=== PATIENT | female | born 1930 | race Caucasian/White ===

== ENCOUNTER 2017-06-04 14:20 | Emergency (ER) | payer MEDICARE ==
[~2017-06-04] VITALS: Ht 154.9 cm; Wt 48.4 kg
[~2017-06-04 14:20] MED LIST: ALBUTEROL SULF8.5 GM INH; ALBUTEROL2.5 MG/3 M INH; ARICEPT ODT10 MG PO; ARICEPT10 MG PO; ARICEPT5 MG PO; ASPIR-LOW81 MG PO; B-12 DOTS500 MCG PO; B-121000 MC2 PO; BENZONATATE100 MG PO; BREO ELLIPTA 21 EACH IH; BREO ELLIPTA I1 EACH INH; CALCIUM 600 MG1 EACH PO; CALCIUM500 M1 PO; CARTIA XT180 MG PO; CRANBERRY200 MG PO; CRANBERRY500 MG PO; DAILY VITE1 EACH PO; DILTIAZEM 24HR120 MG PO; DILTIAZEM 24HR180 M1 PO; DILTIAZEM 24HR240 MG PO; DRISDOL50000 UNIT PO; ESCITALOPRAM OX10 MG PO; FISH OIL 1,0001 EACH PO; FISH OIL300 MG PO; FUROSEMIDE20 MG PO; INCRUSE ELLI62.5 MCG IH; IPRAT-ALBUT 0.5-3 ML INH; KLOR-CON M2020 MEQ PO; LEXAPRO10 MG PO; LIDODERM700 MG TD; LOVASTATIN20 MG PO; METOPROLOL TART25 MG PO; MIRALAX17 GM PO; NITRO-TIME2.5 MG PO; OMEPRAZOLE20 MG PO; PREDNISONE20 MG PO; SYMBICORT 16010.2 GM INH; TOPROL XL50 MG PO; VITAMIN B-12100 MCG PO; VITAMIN D5000 UNIT PO; XARELTO15 MG PO
[2017-06-04] MEDS ORDERED: ALBUTEROL1.25 MG/3 INH (14:31)
[2017-06-04] MEDS ORDERED: MACROBID 100 M100 MG PO (16:50)
== END 2017-06-04 17:03 | disposition home or self-care (01) ==
LOC: ED 14:20
DX: N39.0 Urinary tract infection, site not specified (principal); J44.9 Chronic obstructive pulmonary disease, unspecified; I25.2 Old myocardial infarction; I10 Essential (primary) hypertension; Z90.49 Acquired absence of other specified parts of digestive tract; Z87.01 Personal history of pneumonia (recurrent); Z88.8 Allergy status to other drugs, medicaments and biological substances; Z79.899 Other long term (current) drug therapy; Z79.82 Long term (current) use of aspirin
CPT/HCPCS: 71010; 80053; 81001; 85025; 96374; 99283; J0696

== ENCOUNTER 2017-06-12 17:25 | Inpatient (IN) | payer MEDICARE ==
[~2017-06-12] VITALS: Ht 154.9 cm; Wt 44.0 kg
[~2017-06-12 17:25] MED LIST changes: +ALBUTEROL1.25 MG/3 INH; +MACROBID 100 M100 MG PO
--- NOTE | 2017-06-12 20:45 | NUR ---
87YR OLD WOMAN ADMITTED FROM ER VIA STRETCHER TO ROOM 111. PT IS ALERT, ORIENTED, ABLE TO MOVE SELF ONTO BED WITH MINIMAL ASSISTANCE. SOB WITH EXHERTION. O2 9L VIA OXYMASK. ORIENTED TO ROOM AND CALL LIGHT. ORDERS NOTED.
--- NOTE | 2017-06-12 22:15 | NUR ---
RT IN TO SEE PT AND NEB TREATMENT GIVEN. PT HAS BEEN UP SEVERAL TIMES TO BSC TO VOID AFTER RECIEVING LASIX IN ER. REMAINS ON O2 @ 9L/OXYMASK, 94%. RESTING BETTER AT THIS TIME. HRIR TELE#1 81.
--- NOTE | 2017-06-13 08:00 | NUR ---
SHIFT ASSESSMENT COMPLETE. VSS. RALES AND CRACKLES AUSCULTATED IN BASES OF LUNGS BILAT. HEART RATE IRREGULAR. PT AAO X 3. RT AT PT BEDSIDE FOR ASSESSMENT.
--- NOTE | 2017-06-13 09:00 | NUR ---
BREAKFAST, REG DIET EATEN. PT SWITCHED FROM NC AT 15 LITERS WHILE EATING TO NONREBREATHER MASK AT 7 LITERS. PT REST COMFORTABLY.
--- NOTE | 2017-06-13 10:00 | NUR ---
PT VISITS WITH FAMILY. DENIES NEEDS.
[2017-06-13] MEDS ORDERED: SEROQUEL25 MG PO (11:18)
--- NOTE | 2017-06-13 12:00 | NUR ---
PHARMICIST IN TO REVIEW MED HISTORY WITH PT.
--- NOTE | 2017-06-13 12:03 | NUR ---
MED REC COMPLETE WITH [facility] REFILL HISTORY AND PATIENT INTERVIEW.
--- NOTE | 2017-06-13 13:00 | NUR ---
RT AT PT BEDSIDE. INITIATES CPAP MACHINE FOR TREATMENT OF CRACKLES IN LUNGS. PT SATS 92-94% ON [address] ANGEL IN TO EXAMINE PT. ORDERS RECEIVED.
--- NOTE | 2017-06-13 13:30 | NUR ---
PT CALL RN TO BEDSIDE. PT AGITATED AND REMOVES CPAP MASK. STATES THAT SHE DOESN'T WANT THE CPAP. PT REASSURED AND CALMS. NC APPLIED AT 14 LITERS. TC TO RT. SOHEILA FROM RT TO PT BEDSIDE FOR CPAP EVALUATION AND REAPPLICATION OF MASK.
--- NOTE | 2017-06-13 14:00 | NUR ---
PT CALL RN TO BEDSIDE. PT IS AGITATED AND ANXIOUS. INDEPENDENTLY REMOVES CPAP. REPORTS THAT THE CPAP "HURTS HER EARS". REFUSES TO CONSIDER REAPPLICATION OF THE CPAP MASK. NC AGAIN APPLIED AT 14 LITERS. TC TO RT. RT SUGGESTS CONSULTING DR. ANGEL.
--- NOTE | 2017-06-13 14:30 | NUR ---
PT CONTIN TO SAT 92-95% ON 14 L BY NC. CONTIN TO REFUSE TO ATTEMPT THE CPAP AGAIN. DR. ANGEL HERE. VERBAL REPORT GIVEN. ORDERS RECEIVED TO DC CPAP ORDERS.
--- NOTE | 2017-06-13 15:30 | NUR ---
RESTS COMFORTABLY WITH REG RESPS OBS. O2 SAT 94% ON 14 L NC. PT LEFT UNDISTURBED.
--- NOTE | 2017-06-13 19:00 | NUR ---
RECEIVED REPORT AROUND 1900. FOUND PT IN BED RESTING. PT DENIES SOB OR PAIN AT THIS TIME.
--- NOTE | 2017-06-13 20:00 | NUR ---
ALL LOBES ARE DIMINISHED BUT CLEAR AT THIS POINT. PT HAS SLIGHT PERIPHERAL ANKLE EDEMA. V/S ARE OVERALL WNL.
--- NOTE | 2017-06-13 23:51 | NUR ---
PT AT THIS TIME IS REFUSING PULSE OXYMETRY MONITORING. PT STATED THAT SHE PRAYED ABOUT THIS DECISION AND THAT IS WHAT SHE WANTS BECAUSE IT BOTHERS HER. MD ANGEL WAS CALLED AND HE WAS OK WITH IT.
--- NOTE | 2017-06-14 00:12 | NUR ---
TELE LEADS ARE OFF AND PT IS REFUSING TO LET ME PUT THEM BACK ON. PT STATED THAT SHE DOES NOT WANT TO BE TOUCHED BY US.
--- NOTE | 2017-06-14 00:32 | NUR ---
PT IS GETTING INCREASINGLY AGITATED. PT AT THIS TIME IS ONLY ORIENTED TO SELF. MD ANGEL IS AWARE. WILL CONTINUE TO MONITOR.
--- NOTE | 2017-06-14 01:12 | NUR ---
WE SPOT CHECKED HER AND THE O2 SATS WERE AT 72% ON 11L NASAL CANNULA. RT WAS CALLED. PT AT THIS TIME IS BACK ON MASK AND 11L OF O2. O2 SATS AT THIS TIME ARE 92%. HR AT THIS TIME IS 88. PT DENIES ANY SOB OR ANY OTHER DISTRESS. PT IS LESS CONFUSED AT THIS TIME WELL. WILL CONTINUE TO MONITOR.
--- NOTE | 2017-06-14 01:42 | NUR ---
PT IS SLEEPING AT THIS TIME. O2 SATS ARE AT 94%.
--- NOTE | 2017-06-14 02:00 | NUR ---
ASSISTED PT TO BATHROOM. PT HAD A BM. PT IS BACK IN BED TRYING TO SLEEP.
--- NOTE | 2017-06-14 03:59 | NUR ---
PT IS SLEEPING AT THIS TIME. O2 SATS ARE >91%.
--- NOTE | 2017-06-14 04:59 | NUR ---
PT WAS DOING WELL AT START OF SHIFT WITH 11L OF O2 NASAL CANNULA. 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 MD ANGEL WAS CALLED AND HE SAID TO SPOT CHECK HER O2 SATS. AT ROUND 0000 PT ALSO REFUSED HER TELE LEADS TO BE PUT BACK ON. PT WAS SPOT CHECKED AROUND 0200 AND O2 SATS WERE 72%. RT WAS CALLED AND DECISION WAS MADE TO PUT HER BACK ON THE OXY MASK FIRST ON 13L O2 AND THEN RATE WAS REDUCED BACK TO 11L OF O2. PT SINCE THE SPOT CHECK HAS BEEN COOPERATIVE AND VERY PLEASANT. PT IS ALSO MORE ORIENTED AND ALERT. PT HAD A BM WELL. PT AT THIS TIME IS SLEEPING AND HER O2 SATS HAVE REMAINED >90% SO FAR. NO NEW ISSUES NOTED SO FAR. PT WILL BE WITHIN THE 1600 ML FLUID RESTRICTION UNTIL BREAKFAST.
--- NOTE | 2017-06-14 07:42 | NUR ---
patient used commode, she brushed her teeth, she washed her face,she is up in her chair waiting for her breakfast.
--- NOTE | 2017-06-14 09:00 | NUR ---
PT APPEARS ANXIOUS THIS AM. FIDGETING IN CHAIR, PICKING AT TELE, GOWN, AND OXY MASK. PT ASKING "WHERE AM I, WHAT ARE WE DOING?" ORIENTED TO SELF AND ASKING "WHERE IS MY FAMILY, I WANT TO TALK TO THEM." PT ASSISTED TO CALL FAMILY. PT CALMED NOTICIBLY AFTER TALKING TO THEM. PT DENIES PAIN OR DIFFICULTY BREATHING AT THIS TIME, SATTING 93% ON 12L OXY MASK. BREAKFAST TRAY IN ROOM, PT WORKING ON EATING BREAKFAST INDEPENDENTLY.
--- NOTE | 2017-06-14 10:10 | NUR ---
PT SBA TO COMMODE, VOIDED WITHOUT DIFFICULTY. BACK TO RECLINER. CALL LIGHT WITHIN REACH. PT BECOMING LESS ANXIOUS. OXY MASK ON, PT SATTING LOW TO MID 90'S ON 12L. CALL LIGHT WITHIN REACH.
--- NOTE | 2017-06-14 12:10 | NUR ---
PT CALLED TO USE RESTROOM. ASSISTED TO BSC, VOIDED AND BACK TO CHAIR. LUNCH TRAY ARRIVED, SET UP FOR PT. PT EATING INDEPENDENTLY. CALL LIGHT WITHIN REACH. PT HAS BECOME LESS AGITATED AND CONFUSED. ORIENTED TO SELF, YEAR, AND SITUATION.
--- NOTE | 2017-06-14 14:37 | NUR ---
PT RESTING IN BED, EYES CLOSED, RESP EVEN AND UNLABORED. PT SATTING 95% ON 8L VIA OXY MASK.
--- NOTE | 2017-06-14 15:59 | NUR ---
PT SITTING UP IN RECLINER AWAKE. PLEASANT AND ORIENTED TO ALL AT THIS TIME. DENIES NEEDS OR CONCERNS AT THIS TIME. CALL LIGHT WITHIN REACH.
--- NOTE | 2017-06-14 18:32 | NUR ---
PT STARTED SHIFT ANXIOUS AND DISORIENTED. ENDED SHIFT PLEASANT AND ORIENTED. PT HAS BEEN SATTING ABOVE 90% WITH 8-15L VIA OXY MASK. DENIES SOB ALTHOUGH DOES HAVE SOME ACTIVITY INTOLERANCE, DOES BEST USING BEDSIDE COMMODE. SAT UP IN RECLINER MOST OF THE DAY. SL WITH BID IV LASIX. GOOD APPETITE, ROBERT CARDIAC DIET AND FLUID RESTRICTION. FAMILY IN ROOM MOST OF SHIFT.
--- NOTE | 2017-06-14 21:00 | NUR ---
UP TO BSC, BRUSHED TEETH, WASHED FACE. PLEASANT AND COOPERATIVE. ONE PERSON ASSIST, MIMINAL.
--- NOTE | 2017-06-14 22:09 | NUR ---
NURSE NOTIFIED RE RICARDOP.
--- NOTE | 2017-06-14 22:26 | NUR ---
[facility] MEDS GIVEN WELL TYLENOL FOR TEMP. PT STATES SHE "DOESN'T HAVE A FEVER" BUT ACCEPTED THE MEDICATION WELL A SEVERAL SIPS OF WATER. 02 MASK ON, REMINDED HER TO USE CALL LIGHT FOR ASSISTANCE.
--- NOTE | 2017-06-15 01:17 | NUR ---
PT WITH EYES CLOSED, RESP EVEN AND UNLABORED. HAS KEPT THE 02 MASK ON SINCE PRIOR TO MIDNIGHT WHEN THE ALARM WAS SOUNDING, PT STATED AT THAT TIME, IN AN ANGRY SOUNDING VOICE, "I DON'T WANT THAT THING ON MY FACE (MASK) I HAVE NEVER HAD TO WEAR IT BEFORE" AND PUSHED THIS NURSE HAND AWAY. GENTLY REASSURED PT SATS WERE 82, THAT SHE NEEDED TO KEEP IT ON. RT IN ROOM AT THE SAME TIME AND GENTLY ENCOURAGED PT WELL. CURRENT SATS ARE IN THE 90'S
--- NOTE | 2017-06-15 02:41 | NUR ---
PT WITH EYES CLOSED, ON HER RIGHT SIDE, WITH [address] SATS AT 90-91. NO ALARM HAS SOUNDED SINCE PT TOOK OFF HER MASK OFF EARLIER IN SHIFT.
--- NOTE | 2017-06-15 04:35 | NUR ---
PT WOKE FOR BLOOD PRESSURE. ADMINISTERED MEDICATION AT THIS TIME. TURNED O2 TO 9.5 SATS 98%. PT CLOSED EYES ONCE MED GIVEN.
--- NOTE | 2017-06-15 06:43 | NUR ---
CURRENTLY PT ON RIGHT SIDE, SHEET COVERING HER. HAS KEPT HER 02 MASK ON WITH 02 CURRENTLY AT 9.5 L/MIN. ONLY ONCE WAS CONFUSED, WITH SATS AT 82 AT THE TIME, BUT PT HAD REMOVED HER MASK. ONCE REDIRECTED TO KEEP ON, SHE COMPLIED. HAS NOT BEEN OUT OF BED TO VOID, BUT SPEECH PATHOLOGY SUPERVISOR IN ROOM ATTEMPTING TO HAVE HER GET UP TO VOID. 02 HAS BEEN IN MID 90'S ONCE MASK REMAINED ON.
--- NOTE | 2017-06-15 08:30 | NUR ---
PT SITTING UP IN BED EATING BREAKFAST. ALERT AND ORIENTED THIS AM. ASSISTED UP TO BSC TO VOID. PT ASSISTED TO RECLINER AFTERWARDS. SATTING 98% ON 10L OXY MASK, DECREASED TO 5L PER RT, SATTING 95%. DENIES PAIN, NAUSEA, OR DIFFICULTY BREATHING. CALL LIGHT WITHIN REACH.
--- NOTE | 2017-06-15 10:20 | NUR ---
PT ASSISTED TO BSC. BACK TO RECLINER. PERSONAL ITEMS WITHIN REACH. DENIES NEEDS OR CONCERNS. CALL LIGHT WITHIN REACH. CALLS APPROPRIATELY.
[2017-06-15] MEDS ORDERED: DILTIAZEM ER300 MG PO (11:39)
[2017-06-15] MEDS ORDERED: FUROSEMIDE20 MG PO (11:40)
[2017-06-15] MEDS ORDERED: POTASSIUM CHLO20 ME1 PO (11:40)
[2017-06-15] MEDS ORDERED: MAGNESIUM OXID400 MG PO (11:41)
--- NOTE | 2017-06-15 12:35 | NUR ---
PT ASSISTED TO GET DRESSED. IV DC'D. PT AND FAMILY GIVEN THOROUGH DC INSRUCTIONS. QUESTIONS ANSWERED.
== END 2017-06-15 12:40 | disposition home or self-care (01) | DRG 291 ==
LOC: ED 17:25 → MS 19:56
PROVIDERS: ADMIT Internal Medicine
DX: I11.0 Hypertensive heart disease with heart failure (principal); J96.21 Acute and chronic respiratory failure with hypoxia; G93.41 Metabolic encephalopathy; I50.32 Chronic diastolic (congestive) heart failure; E87.6 Hypokalemia; D63.8 Anemia in other chronic diseases classified elsewhere; J44.9 Chronic obstructive pulmonary disease, unspecified; G30.9 Alzheimer's disease, unspecified; F02.80 Dementia in other diseases classified elsewhere, unspecified severity, without behavioral disturbance, psychotic disturbance, mood disturbance, and anxiety; Z66 Do not resuscitate; I48.2 Chronic atrial fibrillation; D50.8 Other iron deficiency anemias; Z99.81 Dependence on supplemental oxygen
CPT/HCPCS: 36415; 80048; 80053; 81001; 82607; 82728; 82746; 83540; 83735; 83880; 84466; 85025; 85045; 93306; 94640; 94660; 94667; 94668; 94762; J1650

== ENCOUNTER 2017-09-13 13:27 | Emergency (ER) | payer MEDICARE ==
[~2017-09-13] VITALS: Ht 154.9 cm; Wt 44.0 kg
[~2017-09-13 13:27] MED LIST changes: +DILTIAZEM ER300 MG PO; +MAGNESIUM OXID400 MG PO; +POTASSIUM CHLO20 ME1 PO; +SEROQUEL25 MG PO
--- NOTE | 2017-09-14 11:42 | EKG ---
[facility] [address] [place] [address] Signed Atrial fibrillation Left axis deviation Left ventricular hypertrophy with QRS widening Abnormal QRS-T angle, consider primary T wave abnormality Abnormal ECG When compared with ECG of 11-APR-2017 07:32, Current undetermined rhythm precludes rhythm comparison, needs review ST now depressed in Lateral leads QT has shortened Confirmed by DELVIN ANGEL MD ([id number]) on 09/14/2017 11:42:01 AM Electronically Signed By: DELVIN ANGEL MD 09/14/17 1142 PATIENT NAME: CRISTOBAL PARMAR Electrocardiogram DATE OF : [birth year] PHYSICIAN: DELVIN ANGEL MD REPORT #: [id number] REPORT IS CONFIDENTIAL AND NOT TO BE RELEASED WITHOUT AUTHORIZATION
== END 2017-09-13 14:30 | disposition home or self-care (01) ==
LOC: ED 13:27
DX: R06.02 Shortness of breath (principal); R62.7 Adult failure to thrive; I25.2 Old myocardial infarction; I48.91 Unspecified atrial fibrillation; I10 Essential (primary) hypertension; J44.9 Chronic obstructive pulmonary disease, unspecified; Z87.01 Personal history of pneumonia (recurrent); Z90.49 Acquired absence of other specified parts of digestive tract; Z90.11 Acquired absence of right breast and nipple; Z88.8 Allergy status to other drugs, medicaments and biological substances; Z91.011 Allergy to milk products; Z79.899 Other long term (current) drug therapy; Z79.82 Long term (current) use of aspirin
CPT/HCPCS: 80053; 83735; 83880; 84484; 85025; 93005; 93010; 99284